=== PATIENT | female | born 1950 | race Caucasian/White ===

== ENCOUNTER 2017-10-25 06:26 | Day surgery (SDC) | payer OTHER ==
[~2017-10-25] VITALS: Ht 162.6 cm; Wt 60.0 kg
[~2017-10-25 06:26] MED LIST: ANTIBIOTIC; BIOFLEX TABLET1 EACH PO; CAL MAG ZINC +1 EAC1 PO; FISH OIL 1,0001 EAC7 PO; ONE DAILY FOR1 EAC3 PO; VITAMIN C500 M6 PO
[2017-10-25] MEDS ORDERED: CIPRO500 MG PO (07:12)
== END 2017-10-25 09:22 | disposition home or self-care (01) ==
LOC: CATH 06:26
DX: Z45.2 Encounter for adjustment and management of vascular access device (principal); C50.912 Malignant neoplasm of unspecified site of left female breast; I87.8 Other specified disorders of veins
CPT/HCPCS: C1788; C1894; J0690; J1644; J1885; S0020